=== PATIENT | male | born 1975 | race Hispanic/Latino ===

== ENCOUNTER → 2018-12-16 09:32 | Outpatient (CLI) | payer OTHER, SELFPAY ==
[2018-12-16 10:34] LABS: Erythrocyte Sedimentation Rate 31 MM/HR (0-15)
[2018-12-16 11:03] LABS: C-Reactive Protein Quant 0.9 mg/dL (<1.0); Cholesterol 180 mg/dL (140-199); Glucose 92 mg/dL (70-100); HDL Cholesterol 46 mg/dL (40-60); LDL Cholesterol Calculated 113 mg/dL (<100); Triglycerides 105 mg/dL (35-150)
[2018-12-18 19:36] LABS: ANA Screen, IFA Negative (Negative)
== END ==
PROVIDERS: PCP Family Medicine; Visit Provider Family Medicine
DX: Z13.220 Encounter for screening for lipoid disorders (principal); M79.10 Myalgia, unspecified site; Z13.1 Encounter for screening for diabetes mellitus
CPT/HCPCS: 36415; 80061; 82947; 85651; 86038; 86140

== ENCOUNTER → 2020-05-21 13:47 | Outpatient (CLI) | payer OTHER, SELFPAY ==
--- NOTE | 2020-05-21 13:48 | DI.RAD.S_ITS ---
PROCEDURE: XR CERVICAL SPINE 2V OR 3V INDICATIONS: persistent neck pain around C7 TECHNIQUE: 3 view(s) of the cervical spine were acquired. COMPARISON: None. FINDINGS: Bones: No fractures or dislocations to the T1 level. The lateral masses of C1 appear intact on the odontoid view. No suspicious bony lesions. The degenerative changes present in this patient are most pronounced at C5-6 and C6-7 to a slightly lesser degree, and then at C4-5. No prior trauma found. Soft tissues: No prevertebral soft tissue swelling. IMPRESSION: Note is made of a moderately severe degree of degenerative disc disease at C5-6 and to moderate such degeneration at C4-5 and C6-C7. Dictated by: Luis Felipe Vang M.D. on 05/21/2020 at 14:46 Approved by: Luis Felipe Vang M.D. on 05/21/2020 at 14:47
== END ==
PROVIDERS: PCP Family Medicine; Referring Provider Family Medicine; Visit Provider Family Medicine
DX: M54.2 Cervicalgia (principal)
CPT/HCPCS: 72040

== ENCOUNTER → 2020-09-28 10:04 | Outpatient (CLI) | payer OTHER, SELFPAY ==
--- NOTE | 2020-09-28 10:04 | DI.MRI.S_ITS ---
PROCEDURE: MR CERVICAL SPINE WO CON INDICATIONS: neck pain with radiculopathy, no improvement with PT TECHNIQUE: Noncontrast sagittal T1 spin echo and T2 fast spin echo, sagittal STIR, foraminal oblique sagittal T2 fast spin echo, and axial gradient echo or T2 fast spin echo through the cervical spine. COMPARISON: None. FINDINGS: Image quality: Excellent. Alignment and Curvature: Degenerative straightening of the usual cervical lordosis. Otherwise normal alignment. Vertebral body heights maintained. Bone Marrow: No suspicious focal marrow signal abnormality or bone marrow edema. Spinal Cord: Normal morphology and signal intensity of the cervical cord. There is no syrinx. Regional Soft Tissues: Prevertebral and paraspinous soft tissues are within normal limits. C2-C3: No spinal canal or neural foraminal stenosis. C3-C4: Posterior disc-osteophyte complex flattens the ventral thecal sac. Facet and uncovertebral hypertrophy contribute to moderate neural foraminal narrowing on the left. C4-C5: Posterior disc osteophyte complex flattens the ventral thecal sac. Facet and uncovertebral hypertrophy contribute to moderate neural foraminal narrowing on the left. C5-C6: Posterior disc-osteophyte complex flattens and indents the ventral thecal sac, most pronounced in the left paracentral zone where there is also flattening and indentation of the left anterior cord. Facet and uncovertebral hypertrophy contribute to mild left neural foraminal stenosis. C6-C7: No spinal canal stenosis. Facet and uncovertebral hypertrophy contribute to mild left neural foraminal stenosis. C7-T1: No spinal canal or neural foraminal stenosis. IMPRESSION: Moderate neural foraminal narrowing on the left at C3-C4 and C4-C5. Mild spinal canal stenosis at C5-C6. Dictated by: David Lopez M.D. on 09/30/2020 at 8:55 Approved by: David Lopez M.D. on 09/30/2020 at 9:04
== END ==
PROVIDERS: PCP Family Medicine; Referring Provider Family Medicine; Visit Provider Family Medicine
DX: M54.2 Cervicalgia (principal); M54.12 Radiculopathy, cervical region; M48.02 Spinal stenosis, cervical region
CPT/HCPCS: 72141

== ENCOUNTER → 2022-02-09 11:15 | Outpatient (CLI) | payer OTHER, SELFPAY ==
[2022-02-09 13:56] LABS: COVID19 -Nasal RAPID Negative (Negative)
== END ==
PROVIDERS: PCP Family Medicine; Visit Provider Physical Medicine & Rehabilitation
DX: Z20.822 Contact with and (suspected) exposure to COVID-19 (principal)
CPT/HCPCS: 87635; C9803

== ENCOUNTER 2022-02-10 08:55 | Outpatient (CLI) | payer OTHER, SELFPAY ==
[2022-02-10] VITALS (10 sets, daily range): BP systolic 112–130; BP diastolic 71–88; PULSE 71–92; RESP 14–22; TEMP 36.6; O2SAT 97–100
--- NOTE | 2022-02-10 08:59 | DI.RAD.S_ITS ---
PROCEDURE: PAIN C/T FACET INJ/BLK 1ST L INDICATIONS: SPONDYLOSIS COMPARISON: [facility], CR, XR CERVICAL SPINE 2V OR 3V, 05/21/2020, 13:48. [facility], MR, MR CERVICAL SPINE WO CON, 09/28/2020, 10:13. FINDINGS: Fluoroscopic spot filming was performed to verify placement of spinal needles on the left at the C4-C5, C5-C6, and C6-C7 levels, as labeled on the films. Appropriate location of the needle tips was confirmed by injection of iodinated contrast. IMPRESSION: Intraprocedural examination demonstrating appropriate positions of the needles. Dictated by: Erwin Fishman M.D. on 02/10/2022 at 10:36 Approved by: Erwin Fishman M.D. on 02/10/2022 at 10:38
[2022-02-10] MEDS: IOPAMIDOL 15 ML VIAL 3 ML INJ (10:13)
[2022-02-10] MEDS: BUPIVACAINE 0.5% (PF) VIAL 2 ML INJ (10:13)
[2022-02-10] MEDS: MIDAZOLAM 2 MG/2 ML VIAL 4 MG IV (10:13)
[2022-02-10] MEDS: DEXAMETHASONE 10 MG/ML VIAL 30 MG INJ (10:14)
--- NOTE | 2022-02-10 11:01 | P.PCN_ITS ---
Date/Time/Diagnoses Date of procedure: 02/10/22 Time of procedure: 11:02 Pre-procedure diagnosis: 1. FACET ARTHROPATHY 2. AXIAL NECK PAIN Post-procedure diagnosis: same Procedure Notes Procedure: 1. FLUOROSCOPICALLY GUIDED, CONTRAST-CONTROLLED LEFT C5/6 AND C6/7 FACET JOINT INJECTIONS WITH CONSCIOUS SEDATION. Indications: Kristie is referred by Dr. Simms for treatment of Axial Neck Pain Physician: Abbe Henson Total Fluoroscopy time (seconds): 10 Total sedation minutes: 14 Complications: none Procedure in detail & Post-procedure care: DESCRIPTION OF PROCEDURE Fluoroscopically guided, contrast-controlled left C4/5, C5/6 and C6/7 facet joint injections with conscious sedation. Following review of allergy and review of potential side effects and complications, including, but not necessarily limited to, infection, allergic reaction, local tissue breakdown, stroke, temporary or permanent nerve injury and paralysis, the patient indicated that the patient understood and agreed to proceed. An informed consent document was signed by the patient, witnessed by a nurse, and placed in the patient's chart. Additionally, other treatment options including medications, modalities, and physical therapy were reviewed with the patient. After review of previous anaesthesic history and IV conscious sedation the patient was deemed safe to proceed with today?s procedure with IV conscious sedation as ASA class II designation. Safety time-out was performed to confirm patient ID, procedure to be performed and site of procedure. IV sedation was accomplished with a combination of 4mg of Versed was administered by the RN after DO order, titrated to patient comfort during the course of the procedure while the patient remained responsive to all verbal commands In the prone position, following sterile prep and drape of the cervical spine region, the posterior aspect of the left C4/5, C5/6 and C6/7 facet joints were identified fluoroscopically. The skin was anesthetized via a 25-gauge 1.5-inch needle with 1% lidocaine solution into the corresponding facet joints. At this point, a 25-gauge 2.5-inch spinal needle was atraumatically introduced and advanced under fluoroscopic guidance into the corresponding facet joints. Following negative aspiration, injections of approximately 0.2cc of Isovue 200 confirmed interarticular placement without vascular uptake. At this point, a total of 1cc including 0.5cc or 5mg of dexamethasone combined with 0.5cc of 1% lidocaine solution was injected without complication into each of the corresponding facet joints. The procedure tolerated the procedure well without signs or symptoms of complications prior to transfer to the recovery area continued monitoring without incident. The patient was then transferred to the recovery area where they were observed for an appropriate period of time after the injection. The patient reported a VAS score of 8 prior to the procedure and a post- procedure VAS of 2. POST OP INSTRUCTIONS They were provided a Pain Log to continue to record their response to the target-specific procedure prior to their follow-up visit with their referring physician. Additionally, specific post-injection care instructions and a contact number to our office were provided if concerns arise regarding possible complications associated with the procedure are suspected.
== END 2022-02-10 10:46 | disposition home or self-care (01) ==
LOC: RAD 08:58
PROVIDERS: PCP Family Medicine; Referring Provider Physical Medicine & Rehabilitation; Visit Provider Physical Medicine & Rehabilitation
DX: M47.812 Spondylosis without myelopathy or radiculopathy, cervical region (principal)
CPT/HCPCS: 64490; 64491; 64492; 99152; J1100; J2250

== ENCOUNTER → 2023-12-20 14:10 | Outpatient (CLI) | payer OTHER, SELFPAY | LOC: RESP 14:11 | PROVIDERS: PCP Family Medicine; Referring Provider Family Medicine; Visit Provider Family Medicine | DX: R00.2 Palpitations (principal) | CPT/HCPCS: 93005 ==

== ENCOUNTER → 2024-08-14 08:50 | Outpatient (CLI) | payer OTHER, SELFPAY ==
--- NOTE | 2024-08-14 08:54 | DI.RAD.S_ITS ---
PROCEDURE: XR CERVICAL SPINE 4V OR 5V INDICATIONS: NECK PAIN TECHNIQUE: 5 views of the cervical spine acquired. COMPARISON: [facility], CR, XR CERVICAL SPINE 2V OR 3V, 05/21/2020, 13:48. FINDINGS: Seven cervical vertebrae are identified; the T1 vertebral body is obscured by overlying soft tissues. The vertebral body heights are preserved. Straightening of the cervical lordosis with unchanged grade 1 anterolisthesis of C4 on C5. Intervertebral disc height loss at C5-C6 and C6-C7. Interval progression of mild-moderate multilevel facet and uncinate arthropathy, most conspicuous at the C3-C4, C4-C5, and C5-C6 levels. No significant neural foraminal narrowing on the oblique views. The C1 and C2 lateral masses are in symmetric alignment with the dens on the odontoid view. No prevertebral soft tissue edema. IMPRESSION: Interval progression of multilevel mild-moderate facet/uncinate arthropathy. Dictated by: Lowell Bynum M.D. on 08/14/2024 at 9:16 Approved by: Lowell Bynum M.D. on 08/14/2024 at 9:25
== END ==
PROVIDERS: PCP Family Medicine; Referring Provider Physical Medicine & Rehabilitation; Visit Provider Physical Medicine & Rehabilitation
DX: M47.812 Spondylosis without myelopathy or radiculopathy, cervical region (principal); G44.86 Cervicogenic headache; M50.20 Other cervical disc displacement, unspecified cervical region
CPT/HCPCS: 72050; 99214

== ENCOUNTER 2024-09-05 08:44 | Outpatient (CLI) | payer OTHER, SELFPAY ==
[2024-09-05] VITALS (8 sets, daily range): BP systolic 112–138; BP diastolic 70–81; PULSE 76–90; RESP 16–20; TEMP 36.8; O2SAT 99–100
[2024-09-05] MEDS: MIDAZOLAM 5 MG/5 ML VIAL 2 MG IV (09:50)
--- NOTE | 2024-09-05 09:52 | DI.RAD.S_ITS ---
PROCEDURE: PAIN C/T INTERLAMINAR INJECT INDICATIONS: C6-7 translaminar KENYA COMPARISON: None. FINDINGS/IMPRESSION: Fluoroscopic spot filming was performed to verify placement of spinal needles at the C6-C7 level(s), as labeled on the films. Appropriate location(s) of the needle tip(s) was confirmed by injection of iodinated contrast. Dictated by: Benson Carpio M.D. on 09/05/2024 at 13:41 Approved by: Benson Carpio M.D. on 09/05/2024 at 13:41
[2024-09-05] MEDS: iopamidoL 15 ML VIAL 3 ML INJ (09:56)
[2024-09-05] MEDS: DEXAMETHASONE 10 MG/ML VIAL 20 MG INJ (09:56)
[2024-09-05] MEDS: BUPIVACAINE 0.25% (PF) VIAL 2 ML INJ (09:56)
--- NOTE | 2024-09-05 10:11 | P.PCN_ITS ---
Date/Time/Diagnoses Date of procedure: 09/05/24 Time of procedure: 10:12 Pre-procedure diagnosis: 1. CERVICAL STENOSIS, 2. CERVICAL HNP WITH UPPER EXTREMITY RADICULAR FEATURES Post-procedure diagnosis: same Procedure Notes Procedure: 1. FLUORSCOPICALLY GUIDED CONTRAST CONTROLLED INTERLAMINAR EPIDURAL STEROID INJECTION - C6/7 TL KENYA Indications: Kristie is referred by Dr. Simms for treatment of Cervical HNP with Upper Extremity Paresthesias. Physician: Abbe Henson Total Fluoroscopy time (seconds): 26 Total sedation minutes: 16 Complications: none Procedure in detail & Post-procedure care: FINDINGS Cervical Stenosis due to disc deterioration and nerve root irritation and nerve root irritation DESCRIPTION OF PROCEDURE Fluoroscopically guided, contrast-controlled C6/7 translaminar epidural steroid injection with conscious sedation. Following review of allergy and review of potential side effects and complications, including, but not necessarily limited to, infection, allergic reaction, local tissue breakdown, temporary as well as permanent nerve injury, stroke, paralysis, and possible , the patient indicated that patient understood and agreed to proceed. An informed consent document was signed by the patient, witnessed by a nurse, and placed in the patient's chart. Additionally, other treatment options including modalities, medications, and physical therapy were reviewed with the patient. After review of previous anaesthesic history and IV conscious sedation the patient was deemed safe to proceed with today?s procedure with IV conscious sed ation as ASA class II designation. Safety time-out was performed to confirm patient ID, procedure to be performed and site of procedure. IV sedation was accomplished with a combination of 2mg of Versed administered by the RN after DO order, titrated to patient comfort during the course of the procedure while the patient remained responsive to all verbal commands. In the prone position, following sterile prep and drape of the cervical region, the C6/7 translaminar space was identified fluoroscopically. The skin was anesthetized via a 25-gauge 1.5-inch needle with 1% lidocaine solution. At this point, a 25-gauge, 2.5-inch short bevel spinal needle was atraumatically introduced and advanced under fluoroscopic guidance into epidural space at the C6/7 translaminar space. Depth was confirmed on lateral view. Radiological data, including multiple fluoroscopic views of the cervical spine, reveal a spinal needle at the C6/7 translaminar space. Lateral views then show placement of the needle in the epidural space. Subsequent views show contrast material flowing superiorly and inferiorly in the epidural space. DSA fluoroscopy with live contrast injection, once again, confirmed no vascular or intrathecal uptake. At this point, using loss of resistance technique with saline and air, the epidural space was entered. Following negative aspiration, injection of approximately 1.5 cc of Isovue-200 with live fluoroscopy in the AP view confirmed epidural flow in the epidural space without vascular or intrathecal uptake observed. Subsequently, a test dose of 1 cc of 1% lidocaine solution was injected and patient was observed for two minutes without signs or symptoms of complications, including abdominal pain, shortness of breath, bilateral upper or lower extremity weakness, nausea and vomiting, prior to steroid injection. At this point, 2cc or 20mg of dexamethasone was then injected without incident. The patient tolerated the procedure well without signs or symptoms of co mplications prior to being transferred to the recovery area for further monitoring, The patient was then transferred to the recovery area where they were observed for an appropriate period of time after the injection. The patient reported a VAS score of 6 prior to the procedure and a post-procedure VAS of 0. POST OP INSTRUCTIONS The patient was provided a Pain Log to continue to record their response to the target-specific procedure prior to follow-up visit with the referring provider. Additionally, specific post-injection care instructions and a contact number to our office were provided if concerns arise regarding possible complications associated with the procedure are suspected.
== END 2024-09-05 10:32 | disposition home or self-care (01) ==
PROVIDERS: PCP Family Medicine; Referring Provider Physical Medicine & Rehabilitation; Visit Provider Physical Medicine & Rehabilitation
DX: M48.02 Spinal stenosis, cervical region (principal); M50.123 Cervical disc disorder at C6-C7 level with radiculopathy
CPT/HCPCS: 62321; 99152; J1100; J2250; J3490

== ENCOUNTER → 2024-10-24 14:26 | Outpatient (CLI) | payer OTHER, SELFPAY ==
--- NOTE | 2024-10-24 14:27 | DI.RAD.S_ITS ---
PROCEDURE: XR LUMBAR SPINE 2-3V INDICATIONS: right hip numbness TECHNIQUE: 3 views of the lumbar spine were acquired. COMPARISON: None. FINDINGS: Lumbar spine curvature and alignment: Normal. Bones: There are no osseous abnormalities. Disc spaces: Normal in height without significant degeneration. Intervertebral foramen: Grossly normal in width. Soft tissues: No soft tissue swelling, calcification or mass. IMPRESSION: Normal lumbar spine Dictated by: Rg Baker M.D. on 10/25/2024 at 12:44 Approved by: Rg Baker M.D. on 10/25/2024 at 12:44
[2024-10-24 15:51] LABS: Add Manual Diff / Slide Review NO; Basophils Absolute Auto 0 /uL (0-100); Basophils Percent Auto 0.5 % (0-2); Eosinophils Absolute Auto 100 /uL (0-450); Eosinophils Percent Auto 1.3 % (2-4); Hematocrit 38.5 % (36-46); Hemoglobin 12.8 g/dL (12.0-16.0); Lymphocytes Absolute Auto 2100 /uL (1100-4500); Lymphocytes Percent Auto 33.6 % (25-40); Mean Corpuscular HGB Conc 33.1 % (30-36); Mean Corpuscular Hemoglobin 29.7 PG (26-34); Mean Corpuscular Volume 89.7 fL (80-100); Monocytes Absolute Auto 400 /uL (0-900); Monocytes Percent Auto 7.3 % (3-14); Neutrophils Absolute Auto 3500 /uL (1500-7000); Neutrophils Percent Auto 57.3 % (50-75); Platelet Count 365 X10^3/uL (150-400); Red Blood Cell Count 4.29 X10^6/uL (4.0-5.2); Red Cell Distribution Width 12.7 % (11.6-14.8); White Blood Cell Count 6.1 X10^3/uL (4.5-11.0)
[2024-10-24 16:15] LABS: Alanine Aminotransferase 22 IU/L (<35); Albumin 4.8 g/dL (3.5-5.0); Albumin Globulin Ratio 1.4 (1.0-2.8); Alkaline Phosphatase 82 U/L (38-126); Aspartate Aminotransferase 28 IU/L (14-36); BUN Creatinine Ratio 17.3 (6-22); Bilirubin Total 0.6 mg/dL (0.2-1.3); Blood Urea Nitrogen 9 mg/dL (7-17); Calcium 9.8 mg/dL (8.4-10.2); Carbon Dioxide 24 mmol/L (22-32); Chloride 104 mmol/L (98-107); Estimated Glomerular Filt Rate > 60 mL/min (>60); Globulin 3.4 g/dL (1.7-4.1); Glucose 95 mg/dL (70-100); HEMOLYSIS < 15 (0-50); Potassium 3.8 mmol/L (3.4-5.1); Sodium 140 mmol/L (137-145); Total Protein 8.2 g/dL (6.3-8.2)
[2024-10-24 16:29] LABS: Vitamin D 25 Hydroxy (D3) 13.2 ng/mL (30.0-100.0)
[2024-10-24 16:44] LABS: TSH w/ Reflex to FT4 1.63 uIU/mL (0.47-4.68)
[2024-10-24 17:03] LABS: Vitamin B12 376 pg/mL (239-931)
== END ==
LOC: LAB 14:27
PROVIDERS: PCP Family Medicine; Referring Provider Family Medicine; Visit Provider Family Medicine
DX: M54.10 Radiculopathy, site unspecified (principal); R53.83 Other fatigue
CPT/HCPCS: 36415; 72100; 80053; 82306; 82607; 83036; 84443; 85025

== ENCOUNTER 2025-02-01 08:52 | Outpatient (CLI) | payer OTHER, SELFPAY ==
[2025-02-01] VITALS (7 sets, daily range): BP systolic 111–136; BP diastolic 71–86; PULSE 79–92; RESP 14–16; TEMP 36.1; O2SAT 97–100
[2025-02-01] MEDS: MIDAZOLAM 2 MG/2 ML VIAL IV (10:28)
[2025-02-01] MEDS: BUPIVACAINE 0.25% (PF) VIAL 2 ML INJ (10:32)
[2025-02-01] MEDS: DEXAMETHASONE 10 MG/ML VIAL INJ (10:33)
[2025-02-01] MEDS: DEXAMETHASONE 10 MG/ML VIAL 20 MG INJ (10:34)
--- NOTE | 2025-02-01 10:50 | P.PCN_ITS ---
Date/Time/Diagnoses Date of procedure: 02/01/25 Time of procedure: 10:50 Pre-procedure diagnosis: 1. CERVICAL STENOSIS, 2. CERVICAL HNP WITH UPPER EXTREMITY RADICULAR FEATURES Post-procedure diagnosis: same Procedure Notes Procedure: 1. FLUORSCOPICALLY GUIDED CONTRAST CONTROLLED INTERLAMINAR EPIDURAL STEROID INJECTION - C6/7 TL KENYA Indications: Kristie is referred by Dr. Simms for treatment of Cervical HNP with Upper Extremity Paresthesias. Physician: Abbe Henson Total Fluoroscopy time (seconds): 22 Total sedation minutes: 15 Complications: none Procedure in detail & Post-procedure care: FINDINGS Cervical Stenosis due to disc deterioration and nerve root irritation and nerve root irritation DESCRIPTION OF PROCEDURE Fluoroscopically guided, contrast-controlled C6/7 translaminar epidural steroid injection with conscious sedation. Following review of allergy and review of potential side effects and complications, including, but not necessarily limited to, infection, allergic reaction, local tissue breakdown, temporary as well as permanent nerve injury, stroke, paralysis, and possible , the patient indicated that patient understood and agreed to proceed. An informed consent document was signed by the patient, witnessed by a nurse, and placed in the patient's chart. Additionally, other treatment options including modalities, medications, and physical therapy were reviewed with the patient. After review of previous anaesthesic history and IV conscious sedation the patient was deemed safe to proceed with today?s procedure with IV conscious sed ation as ASA class II designation. Safety time-out was performed to confirm patient ID, procedure to be performed and site of procedure. IV sedation was accomplished with a combination of 2mg of Versed administered by the RN after DO order, titrated to patient comfort during the course of the procedure while the patient remained responsive to all verbal commands. In the prone position, following sterile prep and drape of the cervical region, the C6/7 translaminar space was identified fluoroscopically. The skin was anesthetized via a 25-gauge 1.5-inch needle with 1% lidocaine solution. At this point, a 25-gauge, 2.5-inch short bevel spinal needle was atraumatically introduced and advanced under fluoroscopic guidance into epidural space at the C6/7 translaminar space. Depth was confirmed on lateral view. Radiological data, including multiple fluoroscopic views of the cervical spine, reveal a spinal needle at the C6/7 translaminar space. Lateral views then show placement of the needle in the epidural space. Subsequent views show contrast material flowing superiorly and inferiorly in the epidural space. DSA fluoroscopy with live contrast injection, once again, confirmed no vascular or intrathecal uptake. At this point, using loss of resistance technique with saline and air, the epidural space was entered. Following negative aspiration, injection of approximately 1.5 cc of Isovue-200 with live fluoroscopy in the AP view confirmed epidural flow in the epidural space without vascular or intrathecal uptake observed. Subsequently, a test dose of 1 cc of 1% lidocaine solution was injected and patient was observed for two minutes without signs or symptoms of complications, including abdominal pain, shortness of breath, bilateral upper or lower extremity weakness, nausea and vomiting, prior to steroid injection. At this point, 3cc or 30mg of dexamethasone was then injected without incident. The patient tolerated the procedure well without signs or symptoms of co mplications prior to being transferred to the recovery area for further monitoring, The patient was then transferred to the recovery area where they were observed for an appropriate period of time after the injection. The patient reported a VAS score of 6 prior to the procedure and a post-procedure VAS of 0. POST OP INSTRUCTIONS The patient was provided a Pain Log to continue to record their response to the target-specific procedure prior to follow-up visit with the referring provider. Additionally, specific post-injection care instructions and a contact number to our office were provided if concerns arise regarding possible complications associated with the procedure are suspected.
== END 2025-02-01 11:00 | disposition home or self-care (01) ==
PROVIDERS: PCP Family Medicine; Referring Provider Physical Medicine & Rehabilitation; Visit Provider Physical Medicine & Rehabilitation
DX: M48.02 Spinal stenosis, cervical region (principal); M50.123 Cervical disc disorder at C6-C7 level with radiculopathy
CPT/HCPCS: 62321; 99152; J1100; J2250